=== PATIENT | male | born 1965 | race Two or more races ===

== ENCOUNTER 2019-02-11 05:16 | Inpatient (IN) | payer OTHER ==
[~2019-02-11 05:16] MED LIST: ALEVE220 M1 PO; PROTONIX20 MG PO; ZANTAC300 MG PO
== END 2019-02-12 12:13 | disposition home or self-care (01) | DRG 419 ==
LOC: CIR.AMB 05:16 → SURG 10:10 → O/R 10:10 → SURG 11:02
PROVIDERS: ADMIT Specialist
PROC: BF13YZZ Fluoroscopy of Gallbladder and Bile Ducts using Other Contrast (ICD-10-PCS; 2019-02-11)
PROC: 0FT44ZZ Resection of Gallbladder, Percutaneous Endoscopic Approach (ICD-10-PCS; principal; 2019-02-11 07:00)
DX: K81.1 Chronic cholecystitis (principal)

== ENCOUNTER 2019-02-26 13:04 | Outpatient (CLI) | payer OTHER | END 2019-02-26 19:40 | disposition home or self-care (01) | LOC: TOM 13:04 | DX: N20.1 Calculus of ureter (principal) ==

== ENCOUNTER 2019-03-03 07:37 | Outpatient (CLI) | payer OTHER | END 2019-03-03 07:58 | disposition home or self-care (01) | LOC: NUCLEAR 07:37 | DX: K80.10 Calculus of gallbladder with chronic cholecystitis without obstruction (principal) | CPT/HCPCS: 78227; A9537 ==

== ENCOUNTER 2019-04-08 19:43 | Emergency (ER) | payer OTHER ==
[~2019-04-08] VITALS: Ht 167.6 cm; Wt 107.5 kg
[2019-04-08] MEDS ORDERED: TILENOR (19:53)
== END 2019-04-08 23:28 | disposition home or self-care (01) ==
LOC: ER 19:43
DX: J40 Bronchitis, not specified as acute or chronic (principal)